=== PATIENT | female | born 2000 | race Caucasian/White ===

== ENCOUNTER 2020-03-23 17:46 | Inpatient (IN) ==
[2020-03-22 18:55] LABS: Basophils % 0.4 %; Eosinophils # 0.1 K/mcL (0.0-0.6); Hematocrit 34.8 % (35.3-44.9); Hemoglobin 11.5 g/dL (11.5-15.4); Immature Granulocytes % 0.7 % (0-4); Lymphocytes # 2.1 K/mcL (0.6-4.6); Mean Corpuscular Hemoglobin 29.9 pg (28.0-33.3); Mean Corpuscular Volume 90.6 fL (83.0-100.0); Mean Platelet Volume 11.5 fL (9.4-12.4); Monocytes # 0.7 K/mcL (0.0-1.3); Monocytes % 6.3 %; Neutrophils # 8.1 K/mcL (1.6-8.9); Platelet Count 187 K/mcL (140-400); Red Blood Count 3.84 M/mcL (3.82-4.97); Red Cell Distribution Width 13.5 % (11.5-14.5); Segmented Neutrophils % 72.6 %; White Blood Count 11.2 K/mcL (4.3-11.1)
[2020-03-22 19:04] LABS: Amphetamine Screen,Urine Negative ng/mL (Cutoff=1000); Barbiturate Screen,Urine Negative ng/mL (Cutoff=200); Benzodiazepines Screen,Urine Negative ng/mL (Cutoff=200); Cannabinoid Screen,Urine Negative ng/mL (Cutoff = 50); Cocaine Screen,Urine Negative ng/mL (Cutoff= 300); Opiate Screen,Urine Negative ng/mL (Cutoff=300); Phencyclidine Screen,Urine Negative ng/mL (Cutoff=25)
[2020-03-22 19:16] LABS: Alanine Aminotransferase 21 Units/L (7-52); Aspartate Amino Transferase 18 Units/L (13-39); BUN/Creatinine Ratio 12 (6-26); Blood Urea Nitrogen 11 mg/dL (6-20); Lactate Dehydrogenase 238 Units/L (140-271); eGFR For African Americans > 60 (> 60); eGFR For Non-African Americans > 60 (> 60)
[2020-03-22 19:19] LABS: Creatinine,Urine 142 mg/dL; Protein/Creatinine Ratio,Urine 15.06 mg/mg (0.00-0.20)
[2020-03-23] MEDS: Penicillin G Potassium 2,500,000 UNIT/105 ML MLS IVPB SCH ×5 (00:42→15:32)
[2020-03-23] MEDS: Magnesium Sulf 20 gm/SW 500mL 20 GM/500 ML IV.SOLN IVC SCH ×2 (04:34→14:41)
[2020-03-23 08:17] LABS: Alanine Aminotransferase 20 Units/L (7-52); Aspartate Amino Transferase 19 Units/L (13-39); BUN/Creatinine Ratio 12 (6-26); Blood Urea Nitrogen 12 mg/dL (6-20); Lactate Dehydrogenase 271 Units/L (140-271); Uric Acid 6.1 mg/dL (2.3-7.6); eGFR For African Americans > 60 (> 60); eGFR For Non-African Americans > 60 (> 60)
[2020-03-23 11:19] LABS: Basophils % 0.1 %; Hematocrit 33.2 % (35.3-44.9); Hemoglobin 10.7 g/dL (11.5-15.4); Immature Granulocytes % 0.8 % (0-4); Lymphocytes # 1.1 K/mcL (0.6-4.6); Lymphocytes % 4.9 %; Mean Corpuscular HGB Conc 32.2 g/dL (31.6-35.5); Mean Corpuscular Hemoglobin 29.5 pg (28.0-33.3); Mean Corpuscular Volume 91.5 fL (83.0-100.0); Mean Platelet Volume 11.1 fL (9.4-12.4); Monocytes # 0.9 K/mcL (0.0-1.3); Monocytes % 4.2 %; Neutrophils # 19.9 K/mcL (1.6-8.9); Platelet Count 197 K/mcL (140-400); Red Blood Count 3.63 M/mcL (3.82-4.97); Red Cell Distribution Width 13.9 % (11.5-14.5)
[2020-03-23 11:22] LABS: White Blood Count 22.1 K/mcL (4.3-11.1)
[2020-03-23 15:00] LABS: Adenovirus Not Detected (Not Detect); Coronavirus 229E Not Detected (Not Detect); Coronavirus HKU1 Not Detected (Not Detect); Coronavirus NL63 Not Detected (Not Detect)
[2020-03-23 15:01] LABS: Bordetella Pertussis Not Detected (Not Detect); Chlamydophila pneumoniae Not Detected (Not Detect); Coronavirus OC43 Not Detected (Not Detect); Human Metapneumovirus Not Detected (Not Detect); Human Rhinovirus/Enterovirus Not Detected (Not Detect); Influenza A Subtype 2009 H1 Not Detected (Not Detect); Influenza B Not Detected (Not Detect); Mycoplasma pneumoniae Not Detected (Not Detect); Parainfluenza Virus 1 Not Detected (Not Detect); Parainfluenza Virus 2 Not Detected (Not Detect); Parainfluenza Virus 3 Not Detected (Not Detect); Parainfluenza Virus 4 Not Detected (Not Detect); Respiratory Syncytial Virus Not Detected (Not Detect); SARS-CoV-2 Not Detected (Not Detect)
[~2020-03-23 17:46] MED LIST: *HR* FentaNYL (PF) 100 MCG/2 ML VIAL EP ONE; *HR* FentaNYL (PF) 100 MCG/2 ML VIAL IVP PRN; *HR* FentaNYL (PF) 100 MCG/2 ML VIAL ONE; *HR* Labetalol 20 MG/4 ML SYRINGE IVP ONE; *HR* Labetalol 20 MG/4 ML SYRINGE IVP PRN; *HR* Morphine Sulfate/PF 10 MG/10 ML AMPUL ONE; Acetaminophen IV 1,000 MG/100 ML INFUS..BTL ONE; Azithromycin 500 MG in 0.9 % Sodium Chloride 250 ML IVPB ONE; Betamethasone Acet/SodPhos 30 MG/5 ML VIAL IM SCH; Calcium Gluconate 1,000 MG/10 ML VIAL IVP PRN; Calcium Gluconate 1,000 MG/10 ML VIAL ONE; CeFAZolin 2,000 MG/50 ML BAG IVPB ONE; EPHEDrine 50 MG/ML VIAL IVP PRN; Epidural Premix (fent/bupiv) 110 ML EP SCH; Famotidine 20 MG/2 ML VIAL IVP ONE; Famotidine 20 MG/2 ML VIAL IVP PRN; Lidocaine/EPI 1:200k 2% PF 20 ML VIAL ONE; Metoclopramide 10 MG/2 ML VIAL IVP ONE; Metoclopramide 10 MG/2 ML VIAL IVP PRN; Naloxone 0.4 MG/ML INJ IVP PRN; Ondansetron 4 MG/2 ML VIAL IVP PRN; Ondansetron 4 MG/2 ML VIAL ONE; Oxytocin 20 units/ LR 1000 mL 20 UNIT/1,000 ML BAG IVC SCH; Penicillin G Potassium 5,000,000 UNIT in 0.9 % Sodium Chloride Mini Bag 100 ML IVPB ONE; Ringers Solution, Lactated 1,000 ML IVC SCH; Ringers Solution, Lactated 1,000 ML ONE; Ropivacaine/PF 0.2% 20 ML VIAL EP ONE; Ropivacaine/PF 0.2% 20 ML VIAL ONE; miSOPROStoL 25 MCG TABLET PO PRN
[2020-03-23] MEDS ORDERED: Ondansetron 4 MG/2 ML VIAL IVP PRN ×2 (18:02→21:36)
[2020-03-23] MEDS ORDERED: *HR* OxyCODONE Immed Rel 5 MG TABLET PO PRN ×2 (18:02→21:36)
[2020-03-23] MEDS ORDERED: *HR* HYDROmorphone PF 0.5 MG/0.5 ML SYRINGE IVP PRN (18:02)
[2020-03-23] MEDS ORDERED: Oxytocin 20 units/ LR 1000 mL 20 UNIT/1,000 ML BAG IVC ONE (18:12)
[2020-03-23] MEDS ORDERED: *HR* Phenylephrine 10 MG/ML VIAL ONE (18:19)
[2020-03-23] MEDS ORDERED: EPHEDrine 50 MG/ML VIAL ONE (18:31)
[2020-03-23] MEDS ORDERED: Calcium Gluconate 1,000 MG/10 ML VIAL IVP PRN (19:19)
[2020-03-23] MEDS ORDERED: Magnesium Sulf 20 gm/SW 500mL 20 GM/500 ML IV.SOLN IVC SCH (19:30)
[2020-03-23] MEDS ORDERED: Naloxone 0.4 MG/ML INJ IVP PRN (21:36)
[2020-03-23] MEDS ORDERED: Oxytocin 20 units/ LR 1000 mL 20 UNIT/1,000 ML BAG IVC SCH (21:36)
[2020-03-23] MEDS ORDERED: Simethicone 80 MG TAB.CHEW PO PRN (21:36)
[2020-03-23] MEDS ORDERED: Metoclopramide 10 MG/2 ML VIAL IVP PRN (21:36)
[2020-03-23] MEDS ORDERED: Sennosides 8.6 MG TABLET PO PRN (21:36)
[2020-03-23] MEDS ORDERED: Acetaminophen 325 MG TABLET PO PRN (21:36)
[2020-03-23] MEDS: Ibuprofen 600 MG TABLET PO PRN (22:59)
[2020-03-24] MEDS: Magnesium Sulf 20 gm/SW 500mL 20 GM/500 ML IV.SOLN IVC SCH ×2 (01:35→13:57)
[2020-03-24] MEDS ORDERED: Prenatal Vit/FA 1 EACH TABLET PO SCH (09:00)
[2020-03-24] MEDS ORDERED: PNV PO SCH (09:00)
[2020-03-24 11:30] LABS: Basophils % 0.2 %; Hematocrit 27.2 % (35.3-44.9); Hemoglobin 9.2 g/dL (11.5-15.4); Immature Granulocytes % 0.6 % (0-4); Lymphocytes # 1.2 K/mcL (0.6-4.6); Lymphocytes % 6.3 %; Mean Corpuscular HGB Conc 33.8 g/dL (31.6-35.5); Mean Corpuscular Hemoglobin 30.8 pg (28.0-33.3); Mean Platelet Volume 10.8 fL (9.4-12.4); Monocytes # 0.9 K/mcL (0.0-1.3); Monocytes % 4.9 %; Neutrophils # 16.4 K/mcL (1.6-8.9); Platelet Count 182 K/mcL (140-400); Red Blood Count 2.99 M/mcL (3.82-4.97); Red Cell Distribution Width 13.9 % (11.5-14.5); White Blood Count 18.6 K/mcL (4.3-11.1)
[2020-03-24 11:47] LABS: Aspartate Amino Transferase 19 Units/L (13-39); BUN/Creatinine Ratio 16 (6-26); Blood Urea Nitrogen 18 mg/dL (6-20); eGFR For African Americans > 60 (> 60); eGFR For Non-African Americans > 60 (> 60)
[2020-03-24] MEDS: Ibuprofen 600 MG TABLET PO PRN (20:17)
[2020-03-24] MEDS: NIFEdipine XL (24 HR) 30 MG TAB.ER.24 PO SCH (22:32)
[2020-03-25] MEDS: Ibuprofen 600 MG TABLET PO PRN ×2 (02:18→11:09)
[2020-03-25] MEDS: NIFEdipine XL (24 HR) 30 MG TAB.ER.24 PO SCH (11:08)
[2020-03-25 16:27] VITALS: BP 145/94
== END 2020-03-25 17:08 | disposition home or self-care (01) | DRG 788 ==
LOC: 1NENULAB → 1NENUOBS 03-24 00:47
PROVIDERS: ADMIT Obstetrics & Gynecology; ATTEND Obstetrics & Gynecology

== ENCOUNTER 2021-02-11 20:04 | Inpatient (IN) ==
[~2021-02-11 20:04] MED LIST changes: -*HR* FentaNYL (PF) 100 MCG/2 ML VIAL EP ONE; -*HR* FentaNYL (PF) 100 MCG/2 ML VIAL ONE; -*HR* Labetalol 20 MG/4 ML SYRINGE IVP ONE; -*HR* Labetalol 20 MG/4 ML SYRINGE IVP PRN; -*HR* Morphine Sulfate/PF 10 MG/10 ML AMPUL ONE; +*HR* Nalbuphine 10 MG/ML AMPUL IV PRN; -Acetaminophen IV 1,000 MG/100 ML INFUS..BTL ONE; -Azithromycin 500 MG in 0.9 % Sodium Chloride 250 ML IVPB ONE; +Azithromycin 500 MG in 0.9 % Sodium Chloride 250 ML IVPB PRN; -Betamethasone Acet/SodPhos 30 MG/5 ML VIAL IM SCH; -Calcium Gluconate 1,000 MG/10 ML VIAL IVP PRN; -Calcium Gluconate 1,000 MG/10 ML VIAL ONE; -CeFAZolin 2,000 MG/50 ML BAG IVPB ONE; -EPHEDrine 50 MG/ML VIAL IVP PRN; -Epidural Premix (fent/bupiv) 110 ML EP SCH; -Famotidine 20 MG/2 ML VIAL IVP ONE; -Lidocaine/EPI 1:200k 2% PF 20 ML VIAL ONE; -Metoclopramide 10 MG/2 ML VIAL IVP ONE; -Ondansetron 4 MG/2 ML VIAL ONE; -Oxytocin 20 units/ LR 1000 mL 20 UNIT/1,000 ML BAG IVC SCH; -Penicillin G Potassium 5,000,000 UNIT in 0.9 % Sodium Chloride Mini Bag 100 ML IVPB ONE; -Ringers Solution, Lactated 1,000 ML ONE; -Ropivacaine/PF 0.2% 20 ML VIAL EP ONE; -Ropivacaine/PF 0.2% 20 ML VIAL ONE; -miSOPROStoL 25 MCG TABLET PO PRN
[2021-02-11 20:36] LABS: Amphetamine Screen,Urine Negative ng/mL (Cutoff=1000); Barbiturate Screen,Urine Negative ng/mL (Cutoff=200); Benzodiazepines Screen,Urine Negative ng/mL (Cutoff=200); Cannabinoid Screen,Urine Negative ng/mL (Cutoff = 50); Cocaine Screen,Urine Negative ng/mL (Cutoff= 300); Opiate Screen,Urine Negative ng/mL (Cutoff=300); Phencyclidine Screen,Urine Negative ng/mL (Cutoff=25)
[2021-02-11 20:39] LABS: Basophils % 0.3 %; Eosinophils # 0.1 K/mcL (0.0-0.6); Hematocrit 34.1 % (35.3-44.9); Hemoglobin 11.8 g/dL (11.5-15.4); Immature Granulocytes % 0.6 % (0-4); Lymphocytes # 1.8 K/mcL (0.6-4.6); Lymphocytes % 26.6 %; Mean Corpuscular HGB Conc 34.6 g/dL (31.6-35.5); Mean Corpuscular Hemoglobin 30.6 pg (28.0-33.3); Mean Corpuscular Volume 88.3 fL (83.0-100.0); Mean Platelet Volume 11.3 fL (9.4-12.4); Monocytes # 0.3 K/mcL (0.0-1.3); Monocytes % 4.9 %; Neutrophils # 4.5 K/mcL (1.6-8.9); Platelet Count 125 K/mcL (140-400); Red Blood Count 3.86 M/mcL (3.82-4.97); Red Cell Distribution Width 15.5 % (11.5-14.5); Segmented Neutrophils % 66.6 %; White Blood Count 6.7 K/mcL (4.3-11.1)
[2021-02-11 21:02] LABS: Influenza A PCR Negative (Negative); Influenza B PCR Negative (Negative); Reactive Lymphocytes Present (Not Present); Resp. Syncytial Virus PCR Negative (Negative)
[2021-02-11 21:11] LABS: SARS-CoV-2 by PCR (In House) Positive (Negative)
[2021-02-11] MEDS ORDERED: miSOPROStoL 100 MCG TABLET VG ONE (23:00)
[2021-02-11] MEDS ORDERED: *HR* HYDROmorphone 20 MG/20 ML PCA IVC PRN (23:02)
[2021-02-12] MEDS ORDERED: Oxytocin 20 units/ LR 1000 mL 20 UNIT/1,000 ML BAG IVC ONE (01:39)
[2021-02-12] MEDS ORDERED: miSOPROStoL 100 MCG TABLET VG SCH (03:00)
[2021-02-12] MEDS ORDERED: Lanolin 7 G OINT...G. TP PRN (03:38)
[2021-02-12] MEDS ORDERED: Ondansetron ODT 4 MG TAB.RAPDIS SL PRN (03:38)
[2021-02-12] MEDS ORDERED: Acetaminophen 325 MG TABLET PO SCH (03:38)
[2021-02-12] MEDS ORDERED: Benzocaine/Menthol 56 GM AEROSOL SPRAY TP PRN (03:38)
[2021-02-12] MEDS ORDERED: hydrOXYzine pamoate 25 MG CAPSULE PO PRN (03:38)
[2021-02-12] MEDS ORDERED: Oxytocin 20 units/ LR 1000 mL 20 UNIT/1,000 ML BAG IVC SCH (03:38)
[2021-02-12] MEDS ORDERED: Ibuprofen 600 MG TABLET PO SCH (05:33)
[2021-02-12] MEDS ORDERED: Prenatal Vit/FA 1 EACH TABLET PO SCH (09:00)
== END 2021-02-12 07:15 | disposition home or self-care (01) | DRG 805 ==
LOC: 1NENULAB
PROVIDERS: ADMIT Registered Nurse; ATTEND Registered Nurse